=== PATIENT | male | born 1975 | race Caucasian/White ===

== ENCOUNTER 2017-10-17 08:20 | Day surgery (SDC) | payer OTHER ==
[2017-10-17] MEDS ORDERED: PROPOFOL 200 MG/20 ML VIAL As Ordered ×2 (08:43→12:04)
[2017-10-17] MEDS ORDERED: LIDOCAINE 2% INJ 100 MG/5 ML SDV (FOR ANES.) As Ordered (08:43)
[2017-10-17] MEDS ORDERED: fentaNYL 250 MCG/5 ML INJECTION (J3010) As Ordered (08:43)
[2017-10-17] MEDS ORDERED: MIDAZOLAM INJ 2 MG/2 ML VIAL (J2250) As Ordered ×3 (08:44→11:51)
[2017-10-17] MEDS: LR 1,000 ML IV (09:04)
[2017-10-17] MEDS: LIDOCAINE W/EPINEPHRINE 1% 20ML VIAL As Ordered (11:16)
[2017-10-17] MEDS: LIDOCAINE 1% MDV 20ML VIAL As Ordered (12:03)
[2017-10-17] MEDS ORDERED: dexameTHASONE 4 MG/ML 1ML VIAL (J1100) As Ordered (12:04)
[2017-10-17] MEDS ORDERED: ONDANSETRON 4MG/2ML VIAL (J2405) As Ordered (12:04)
[2017-10-17] MEDS ORDERED: KETOROLAC 60 MG/2 ML VIAL (J1885) As Ordered (12:04)
[2017-10-17] MEDS: LIDOCAINE 1% SDV INJ 30 ML VIAL As Ordered (12:11)
[2017-10-17] MEDS: BUPIVACAINE HCL 0.25% 30 ML VIAL As Ordered (12:11)
[2017-10-17] MEDS ORDERED: MORPHINE 10 MG/ML 1ML VIAL As Ordered (12:45)
[2017-10-17] MEDS: MORPHINE 10 MG/ML 1ML VIAL IV ×5 (12:55→13:45)
[2017-10-17] MEDS ORDERED: PERCOCET 5MG/325MG TAB PO (13:00)
[2017-10-17] MEDS ORDERED: LR 1,000 ML IV (13:00)
[2017-10-17] MEDS ORDERED: fentaNYL 100 MCG/2 ML INJECTION (J3010) IV (13:00)
[2017-10-17] MEDS ORDERED: ONDANSETRON 4MG/2ML VIAL (J2405) IV (13:00)
== END 2017-10-17 14:37 | disposition home or self-care (01) ==
LOC: M SDC 08:20
DX: L72.0 Epidermal cyst (principal); L02.214 Cutaneous abscess of groin; L73.2 Hidradenitis suppurativa; I10 Essential (primary) hypertension; M54.5 Low back pain; G89.29 Other chronic pain; K21.9 Gastro-esophageal reflux disease without esophagitis; F43.10 Post-traumatic stress disorder, unspecified; E55.9 Vitamin D deficiency, unspecified; F41.9 Anxiety disorder, unspecified; F32.9 Major depressive disorder, single episode, unspecified; E78.00 Pure hypercholesterolemia, unspecified; M12.9 Arthropathy, unspecified; M54.2 Cervicalgia; G43.909 Migraine, unspecified, not intractable, without status migrainosus; R06.83 Snoring; G47.33 Obstructive sleep apnea (adult) (pediatric); Z88.5 Allergy status to narcotic agent; Z79.899 Other long term (current) drug therapy; Z86.14 Personal history of Methicillin resistant Staphylococcus aureus infection; Z87.820 Personal history of traumatic brain injury; Z72.0 Tobacco use; Z98.1 Arthrodesis status
CPT/HCPCS: 11402